=== PATIENT | male | born 1970 | race Two or more races ===

== ENCOUNTER 2016-11-23 18:41 | Emergency (ER) | payer OTHER ==
[~2016-11-23 18:41] MED LIST: AMITRIPTYLINE10 MG PO; EFFEXOR-XR75 MG PO; LISINOPRIL10 MG PO; METFORMIN HCL1000 MG PO; TRAZODO PO; TRAZODONE50 M1 PO; ZOCOR20 MG PO
[2016-11-23 19:57] LABS: CALCIUM 8.1 mg/dL (8.5-10.1); CARBON DIOXIDE 29.1 mmol/L (21-32); CHLORIDE SERUM 106 mmol/L (98-107); CREATININE SERUM 0.9 mg/dL (0.7-1.3); GFR1 > 60 mL/min; GLUCOSE SERUM 222 mg/dL (74-106); POTASSIUM SERUM 3.8 mmol/L (3.5-5.1); SODIUM SERUM 142 mmol/L (136-145)
[2016-11-23 19:58] LABS: BASOPHIL % 1.5 % (0-2); PLATELET COUNT 287 x10^3mcL (130-400)
[2016-11-23 20:04] LABS: ALBUMIN 3.4 g/dL (3.4-5.0); ALKALINE PHOSPHATASE 54 U/L (46-116); ALT/SGPT 17 U/L (16-63); AST/SGOT 16 U/L (15-37); BILIRUBIN TOTAL 0.26 mg/dL (0.20-1.00); LIPASE 314 IU/L (73-393); MAGNESIUM 2.2 mg/dL (1.8-2.4); RED CELL DISTRIBUTION WIDTH 15.9 % (11.5-14.5); TOTAL PROTEIN, SERUM 6.9 g/dL (6.4-8.2)
[2016-11-23 22:33] VITALS: BP 114/72
[2016-11-23 23:49] LABS: FREE T4 0.76 ng/dL (0.76-1.46); FREE THYROXINE INDEX 1.8 ug/dL (1.4-4.5); T4(THYROXINE) 5.1 ug/dL (4.7-13.3)
[2016-11-23 23:52] LABS: PHOSPHOROUS 2.6 mg/dL (2.5-4.9)
[2016-11-23 23:53] LABS: CHOLESTEROL/HDL RATIO 1.5
[2016-11-24 00:16] LABS: T3 TOTAL 0.64 ng/mL
== END 2016-11-24 00:35 | disposition left against medical advice (07) ==
LOC: ED 18:41
PROVIDERS: Emergency Medicine; Family Medicine Sports Medicine
DX: F10.129 Alcohol abuse with intoxication, unspecified (principal); K29.00 Acute gastritis without bleeding; F32.9 Major depressive disorder, single episode, unspecified; I10 Essential (primary) hypertension; E11.9 Type 2 diabetes mellitus without complications; E78.00 Pure hypercholesterolemia, unspecified; F41.9 Anxiety disorder, unspecified; Z86.59 Personal history of other mental and behavioral disorders
CPT/HCPCS: 83880; 84439; G0480; J2405; J3411; J3475; J3490; J7030; Q0092

== ENCOUNTER 2018-03-05 17:30 | Emergency (ER) | payer OTHER | END 2018-03-05 20:26 | disposition left against medical advice (07) | LOC: ED 17:30 ==

== ENCOUNTER 2018-03-09 17:30 | Emergency (ER) | payer OTHER ==
[~2018-03-09] VITALS: Ht 177.8 cm; Wt 65.8 kg
[2018-03-09 17:33] VITALS: Ht 177.8 cm; Wt 65.8 kg
[2018-03-09 18:25] LABS: BASOPHIL % 1.6 % (0-2); PLATELET COUNT 339 x10^3mcL (130-400)
[2018-03-09 18:27] LABS: RED CELL DISTRIBUTION WIDTH 16.2 % (11.5-14.5)
[2018-03-09 18:34] LABS: CALCIUM 8.9 mg/dL (8.5-10.1); CARBON DIOXIDE 24.9 mmol/L (21-32); CHLORIDE SERUM 101 mmol/L (98-107); CREATININE SERUM 0.9 mg/dL (0.7-1.3); GFR1 > 60 mL/min; GLUCOSE SERUM 223 mg/dL (74-106); POTASSIUM SERUM 3.8 mmol/L (3.5-5.1); SODIUM SERUM 138 mmol/L (136-145)
[2018-03-09 18:39] LABS: ALBUMIN 4.1 g/dL (3.4-5.0); ALKALINE PHOSPHATASE 57 U/L (46-116); ALT/SGPT 37 U/L (16-63); AST/SGOT 38 U/L (15-37); BILIRUBIN TOTAL 0.4 mg/dL (0.20-1.00); LIPASE 426 IU/L (73-393)
[2018-03-09 19:53] VITALS: BP 124/76
== END 2018-03-09 19:53 | disposition home or self-care (01) ==
LOC: ED 17:30
PROVIDERS: Emergency Medicine
DX: G89.29 Other chronic pain (principal); M25.561 Pain in right knee; F10.129 Alcohol abuse with intoxication, unspecified; K85.90 Acute pancreatitis without necrosis or infection, unspecified; I10 Essential (primary) hypertension; E11.9 Type 2 diabetes mellitus without complications; E78.00 Pure hypercholesterolemia, unspecified; F31.9 Bipolar disorder, unspecified; F41.9 Anxiety disorder, unspecified
CPT/HCPCS: 82962; C9113; J2405; J7030

== ENCOUNTER 2018-03-21 03:01 | Emergency (ER) | payer OTHER ==
[2018-03-21 06:30] VITALS: BP 114/68
== END 2018-03-21 06:30 | disposition left against medical advice (07) ==
LOC: ED 03:01
DX: F10.129 Alcohol abuse with intoxication, unspecified (principal); I10 Essential (primary) hypertension; E11.9 Type 2 diabetes mellitus without complications; E78.00 Pure hypercholesterolemia, unspecified; F31.9 Bipolar disorder, unspecified; Y90.9 Presence of alcohol in blood, level not specified
CPT/HCPCS: J2060

== ENCOUNTER 2018-06-03 07:37 | Emergency (ER) | payer OTHER ==
[~2018-06-03] VITALS: Ht 177.8 cm; Wt 60.8 kg
[2018-06-03 07:41] VITALS: Ht 177.8 cm; Wt 60.8 kg
[2018-06-03 08:26] LABS: CALCIUM 9.1 mg/dL (8.5-10.1); CARBON DIOXIDE 25.4 mmol/L (21-32); CHLORIDE SERUM 90 mmol/L (98-107); CREATININE SERUM 1.2 mg/dL (0.7-1.3); GFR1 > 60 mL/min; GLUCOSE SERUM 280 mg/dL (74-106); POTASSIUM SERUM 3.7 mmol/L (3.5-5.1); SODIUM SERUM 126 mmol/L (136-145)
[2018-06-03 08:30] LABS: ALBUMIN 3.9 g/dL (3.4-5.0); ALKALINE PHOSPHATASE 73 U/L (46-116); ALT/SGPT 105 U/L (16-63); AST/SGOT 109 U/L (15-37); TOTAL PROTEIN, SERUM 7.6 g/dL (6.4-8.2)
[2018-06-03 08:53] LABS: PLATELET COUNT 222 x10^3mcL (130-400)
[2018-06-03 08:59] LABS: BASOPHIL % 0 % (0-2); RED CELL DISTRIBUTION WIDTH 15.7 % (11.5-14.5)
[2018-06-03 10:03] VITALS: BP 124/75
== END 2018-06-03 10:03 | disposition home or self-care (01) ==
LOC: ED 07:37
PROVIDERS: Emergency Medicine
DX: T78.3XXA Angioneurotic edema, initial encounter (principal); I10 Essential (primary) hypertension; E11.9 Type 2 diabetes mellitus without complications; E78.00 Pure hypercholesterolemia, unspecified; F31.9 Bipolar disorder, unspecified; Z91.018 Allergy to other foods
CPT/HCPCS: 83880; J0171; J1200; J2930; Q0092

== ENCOUNTER 2018-08-01 23:04 | Emergency (ER) | payer OTHER ==
[~2018-08-01] VITALS: Ht 175.3 cm; Wt 70.5 kg
[2018-08-01 23:11] VITALS: Ht 175.3 cm; Wt 70.5 kg
[2018-08-01 23:46] LABS: PLATELET COUNT 212 x10^3mcL (130-400); RED CELL DISTRIBUTION WIDTH 13.4 % (11.5-14.5)
[2018-08-01 23:59] LABS: CALCIUM 9.5 mg/dL (8.5-10.1); CARBON DIOXIDE 31.2 mmol/L (21-32); CHLORIDE SERUM 104 mmol/L (98-107); CREATININE SERUM 0.8 mg/dL (0.7-1.3); GFR1 > 60 mL/min; GLUCOSE SERUM 123 mg/dL (74-106); POTASSIUM SERUM 4.4 mmol/L (3.5-5.1); SODIUM SERUM 140 mmol/L (136-145)
[2018-08-02 00:04] LABS: ALBUMIN 4.2 g/dL (3.4-5.0); ALKALINE PHOSPHATASE 37 U/L (46-116); ALT/SGPT 39 U/L (16-63); AST/SGOT 17 U/L (15-37); BILIRUBIN TOTAL 0.4 mg/dL (0.20-1.00); TOTAL PROTEIN, SERUM 7.2 g/dL (6.4-8.2)
[2018-08-02 00:53] VITALS: BP 128/64
== END 2018-08-02 00:53 | disposition home or self-care (01) ==
LOC: ED 23:04
PROVIDERS: Emergency Medicine
DX: R42 Dizziness and giddiness (principal); T43.595A Adverse effect of other antipsychotics and neuroleptics, initial encounter; I10 Essential (primary) hypertension; E11.9 Type 2 diabetes mellitus without complications; E78.00 Pure hypercholesterolemia, unspecified; F41.9 Anxiety disorder, unspecified; Z91.018 Allergy to other foods; Y92.89 Other specified places as the place of occurrence of the external cause
CPT/HCPCS: 36415; G0480